=== PATIENT | male | born 1930 | race Caucasian/White ===

== ENCOUNTER 2018-10-21 10:52 | Inpatient (IN) ==
--- NOTE | 2018-10-21 11:16 | ED ---
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 Patient went to Dr. Valenzuela's office apparently for a checkup today. He had his pacemaker interrogated which was showing intermittent capture. EMS reported that his heart rate in route was in the 30s but he had no symptoms from it. Patient has no complaints currently. Has a note from Dr. Valenzuela's office showing that even with maximum voltage she had been intermittent capture in the symptom of here for a lead replacement. Denies any chest pain shortness breath abdominal pain nausea vomiting diarrhea constipation Related Data Home Medications Medication Instructions Recorded Confirmed acetaminophen [Tylenol] 650 mg PO Q6H PRN 10/21/18 10/21/18 atenolol [Tenormin] 50 mg PO QAM 10/21/18 10/21/18 carboxymethylcellulose sodium 0.5 ml EACH EYE BID 10/21/18 10/21/18 [Refresh Plus] clopidogrel [Plavix] 75 mg PO QAM 10/21/18 10/21/18 coenzyme Q10 [CoQ-10] 100 mg PO DAILY 10/21/18 10/21/18 fluticasone [Flonase Allergy 1 spray INTRANASAL DAILY 10/21/18 10/21/18 Relief] lisinopril 10 mg PO DAILY 10/21/18 10/21/18 mirtazapine [Remeron] 30 mg PO HS 10/21/18 10/21/18 multivitamin,wp-ffyf-bclaobms 1 tab PO QPM 10/21/18 10/21/18 [Thera-M] Allergies Allergy/AdvReac Type Severity Reaction Status Date / Time No Known Allergies Allergy Uncoded 10/18/14 14:18 Review of Systems ROS: all other systems reviewed are negative [facility] Medical History Medical History Pacemaker (Acute) Social History Social History Second Hand Smoke Exposure: No Smoking Status: Never smoker How Often Do You Have a Drink Containing Alcohol: Never Recent Travel in [facility] within the Last 8 Weeks: No Recent Out of Country Travel within the Last 8 Weeks: No Immunization History Tetanus Immunization: Unsure Course Initial Documented Vital Signs Pulse Rate 44 L 10/21/18 10:59 Respiratory Rate 16 10/21/18 10:59 Blood Pressure 164/77 H 10/21/18 10:59 Pulse Oximetry 99 10/21/18 10:59 Last Documented Vital Signs Pulse Rate 50 L 10/21/18 14:07 Respiratory Rate 22 10/21/18 14:07 Blood Pressure 153/76 H 10/21/18 14:07 Pulse Oximetry 98 10/21/18 14:07 Medical Decision Making MDM Narrative Medical decision making narrative: Patient 88-year-old male brought in by EMS for apparently nonfunctioning pacemaker lead. Report from EMS was that the patient has had intermittent functioning pacemaker lead even on maximum voltage by interrogation this morning at Dr. Valenzuela's office. Patient is placed Dr. Valenzuela's office and a call was apparently forwarded to Dr. Archer who is unaware the patient. If not been able to reach Dr. Valenzuela. Chest x -ray does not show any broken lead, discussed with Dr. Archer and he will be happy to follow. The patient's labs are reassuring here. Possible pleural effusion on chest x-ray. Patient has no complaints now, he is somewhat odd in behavior and unclear what his baseline mental status is. He is neurologically nonfocal is no indication for emergent workup of his mental status now. Patient did have pacemaker pads placed on him but he has had 100% capture at a rate about 54 here in the emergency department. EKG shows electronically ventricular paced rhythm. He will be placed in the CICU for further cardiology management. Medical Screen Exam Complete: Yes Emergency Medical Condition: Yes Lab Data Result diagrams: 10/21/18 11:16 10/21/18 11:16 Lab Results 10/21/18 10/21/18 Range/Units 11:16 11:16 WBC 6.6 (4.0-11.0) th/mm3 RBC 3.96 L (4.50-5.90) mil/mm3 Hgb 12.2 L (13.0-17.0) gm/dL Hct 35.9 L (39.0-51.0) % MCV 90.5 (80.0-100.0) fL MCH 30.9 (27.0-34.0) pg MCHC 34.1 (32.0-36.0) % RDW 16.2 (11.6-17.2) % Plt Count 272 (150-450) th/mm3 MPV 8.4 (7.0-11.0) fL Neut % (Auto) 56.9 (16.0-70.0) % Lymph % (Auto) 27.5 (9.0-44.0) % [place] % (Auto) 12.7 H (0.0-8.0) % Eos % (Auto) 1.8 (0.0-4.0) % Baso % (Auto) 1.1 (0.0-2.0) % Neut # (Auto) 3.7 (1.8-7.7) th/mm3 Lymph # (Auto) 1.8 (1.0-4.8) th/mm3 [place] # (Auto) 0.8 (0.0-0.9) th/mm3 Eos # (Auto) 0.1 (0.0-0.4) th/mm3 Baso # (Auto) 0.1 (0.0-0.2) th/mm3 WBC Differential . Differential Comment Auto diff final Sodium 134 L (136-145) meq/L Potassium 4.2 (3.5-5.1) meq/L Chloride 101 (98-107) meq/L Carbon Dioxide 22.4 (21.0-32.0) meq/L Anion Gap 11 (5-15) meq/L BUN 19 H (7-18) mg/dL Creatinine 0.98 (0.60-1.30) mg/dL Estimated GFR 72 L (>89) mL/min Random Glucose 104 (74-106) mg/dL Calcium 8.8 (8.5-10.1) mg/dL Total Bilirubin 0.7 (0.2-1.0) mg/dL AST 22 (15-37) U/L ALT 17 (12-78) U/L Alkaline Phosphatase 173 H (45-117) U/L Troponin I Less than 0.02 L (0.02-0.05) ng/mL Total Protein 7.8 (6.4-8.2) g/dL Albumin 3.2 L (3.4-5.0) g/dL Imaging Data Radiologist's impression: Chest X-Ray 10/21/18 11:06 CONCLUSION: 1. Mild diffuse opacity throughout the right lung which may represent a pleural effusion. 2. Mild cardiomegaly 3. No evidence of pulmonary edema or consolidating airspace disease. Discharge Plan Discharge Disposition Patient Disposition: ED Admit(ED Internal Use Only) Discharge Condition Condition: Stable Discharge Order Discharge Orders: ED Use Only Admit Order (Routine); Ordered 10/21/18 Ordered By: Jet Moreno Discharge Details Diagnosis: Pacemaker malfunction Physicians Team ED Provider: Jet Moreno Primary Care Provider: Guy Crump Attending Provider: Debora Khoury Other Providers: Oscar Archer Discharge Interventions Interventions: Vital Signs Last Done: 10/21/18 14:07 Status ED Status: Admitted Observation Patient
[2018-10-21 11:39] LABS: Baso # (Auto) 0.1 th/mm3 (0.0-0.2); Baso % (Auto) 1.1 % (0.0-2.0); Eos # (Auto) 0.1 th/mm3 (0.0-0.4); Eos % (Auto) 1.8 % (0.0-4.0); Hematocrit 35.9 % (39.0-51.0); Hemoglobin 12.2 gm/dL (13.0-17.0); Lymph # (Auto) 1.8 th/mm3 (1.0-4.8); Lymph % (Auto) 27.5 % (9.0-44.0); Mean Corpuscular HGB Conc 34.1 % (32.0-36.0); Mean Corpuscular Hemoglobin 30.9 pg (27.0-34.0); Mean Corpuscular Volume 90.5 fL (80.0-100.0); Mean Platelet Volume 8.4 fL (7.0-11.0); Mono # (Auto) 0.8 th/mm3 (0.0-0.9); Mono % (Auto) 12.7 % (0.0-8.0); Neut # (Auto) 3.7 th/mm3 (1.8-7.7); Neut % (Auto) 56.9 % (16.0-70.0); Platelet Count 272 th/mm3 (150-450); Red Blood Count 3.96 mil/mm3 (4.50-5.90); Red Cell Distribution Width 16.2 % (11.6-17.2); White Blood Count 6.6 th/mm3 (4.0-11.0)
--- NOTE | 2018-10-21 11:45 | XR ---
EXAM DATE: 10/21/2018 11:41 AM EST AGE/SEX: 88 years / Male INDICATIONS: Chest pain. CLINICAL DATA: This is the patient's initial encounter. Patient reports that signs and symptoms have been present for 1 day and indicates a pain score of 3/10. MEDICAL/SURGICAL HISTORY: None. Pacemaker. COMPARISON: [facility] [place], CHEST SINGLE AP, 05/04/2012. . FINDINGS: Lungs are hypoaerated. Mild opacity seen throughout the right lung. Left lung is clear. Heart is mildly enlarged. Pacemaker is noted in place. CONCLUSION: 1. Mild diffuse opacity throughout the right lung which may represent a pleural effusion. 2. Mild cardiomegaly 3. No evidence of pulmonary edema or consolidating airspace disease. Electronically signed by: Janes Austin MD Board Certified Radiologist 10/21/2018 11:44 AM EST
[2018-10-21 11:57] LABS: Albumin 3.2 g/dL (3.4-5.0); Anion Gap 11 meq/L (5-15); Aspartate Aminotransferase 22 U/L (15-37); Blood Urea Nitrogen 19 mg/dL (7-18); Calcium 8.8 mg/dL (8.5-10.1); Carbon Dioxide 22.4 meq/L (21.0-32.0); Chloride 101 meq/L (98-107); Glomerular Filtration Rate 72 mL/min (>89); Glucose,Random 104 mg/dL (74-106); Potassium 4.2 meq/L (3.5-5.1); Sodium 134 meq/L (136-145)
[2018-10-21 11:58] LABS: Alanine Aminotransferase 17 U/L (12-78)
[2018-10-21 12:02] LABS: Alkaline Phosphatase 173 U/L (45-117); Total Protein 7.8 g/dL (6.4-8.2)
[2018-10-21] MEDS ORDERED: Mupirocin 2% Nasal Oint Topical Syringe EACH NARE SCH (13:45)
[2018-10-21] MEDS ORDERED: Chlorhexidine Gluconate 2% 1 Pack (2 Cloths) TOPICAL SCH (13:45)
[2018-10-21 15:30] LABS: INR 1.1 Ratio
--- NOTE | 2018-10-21 16:22 | P.HP ---
History of Present Illness Service: [facility] hospitalist service Primary Care Physician: Guy Crump Chief Complaint: Malfunctioning pacemaker History of Present Illness: Patient is a very pleasant 88-year-old male who resident of nearby [facility], with history of hypertension, Baseline some Dementia baseline gets around mainly with a wheelchair and not ambulating, Patient has history of pacemaker placed 7 years ago. Was in his digital pre press operator's office today, interrogating pacemaker showed non-captured beats. En route here heart rate reportedly was in the 30s. Patient sent here and admitted for pacemaker change. Patient denies any dizziness headache nausea vomiting or chest pain or shortness of breath. Patient baseline is incontinent of urine. And at the [facility] [place] [facility] gets his diaper change every 4-6 hours. wheel chair bound Patient is currently awake alert oriented to person place and year speech clear Currently on monitor his heart rate is in paced rhythm with rate of 55-58/min Review of records is on mechanical soft thin liquid diet. Never smoked per patient Very hard of hearing . Inpatient Certification: I certify that the inpatient services were ordered in accordance with Medicare regulations governing the order. This includes certification that hospital inpatient services are reasonable and necessary and in the case of services not specified as inpatient-only under 42 CFR 419.22(n), that they are appropriately provided as inpatient services in accordance to with the 2-midnight benchmark under 43 CFR 412.3(e) Estimated Total Length of Stay (Days): 2 Plans for Post Hospital Care: Not yet determined Review of Systems Patient is awake alert denies any headache denies any fever nausea or vomiting Denies any chest pain or shortness of breath and Denies any abdominal discomfort Stated baseline per staff nurse is incontinent of urine no leg swelling Gets around with a wheelchair PMFSH - History History Provided By: Retail Sales Consultant / EMT - Medical History Medical History: Medical History (Last Updated 10/21/18 @ 11:03 by Pia Feng RN) Pacemaker - Tobacco History Second Hand Smoke Exposure: No Smoking Status: Never smoker - Alcohol History How Often Do You Have a Drink Containing Alcohol: Never - Travel History Recent Travel in the [place] Within the Last 8 Weeks: No Recent Travel Out of the Country Within the Last 8 Weeks: No - Immunization History Tetanus Immunization: Unsure Medications and Allergies Active Medications: Active Medications Chlorhexidine Gluconate (Chlorhexidine 2% Cloth) 3 pack TOPICAL CORING MACHINE OPERATOR RYAN Stop: 10/24/18 13:31 Cefazolin Sodium/Dextrose (Ancef 2 Gm Premix Inj) 2 gm in 50 mls @ 100 mls/hr IV.SIG CORING MACHINE OPERATOR [facility] Stop: 10/24/18 13:32 Vancomycin HCl 1,000 mg/ (Sodium Chloride) 250 mls @ 250 mls/hr IV.SIG CORING MACHINE OPERATOR [facility] Stop: 10/24/18 13:32 Sodium Chloride (Ns Inj) 1,000 mls @ 100 mls/hr IV.CONT .Q10H [facility] Mupirocin (Bactroban 2% Nasal Oint) 1 applicatio EACH NARE CORING MACHINE OPERATOR [facility] Stop: 10/24/18 13:31 Povidone Iodine (Betadine 5% Antisepsis Kit) 1 applicatio EACH NARE CORING MACHINE OPERATOR [facility] Stop: 10/24/18 13:31 Sodium Chloride (Ns Flush) 2 ml IV.FLUSH UNSCH PRN PRN Reason: FLUSH AFTER USING IV ACCESS Allergies Allergy/AdvReac Type Severity Reaction Status Date / Time No Known Allergies Allergy Uncoded 10/18/14 14:18 Home Medications Medication Instructions Recorded Confirmed Type acetaminophen [Tylenol] 650 mg PO Q6H PRN 10/21/18 10/21/18 History atenolol [Tenormin] 50 mg PO QAM 10/21/18 10/21/18 History carboxymethylcellulose sodium 0.5 ml EACH EYE BID 10/21/18 10/21/18 History [Refresh Plus] clopidogrel [Plavix] 75 mg PO QAM 10/21/18 10/21/18 History coenzyme Q10 [CoQ-10] 100 mg PO DAILY 10/21/18 10/21/18 History fluticasone [Flonase Allergy 1 spray INTRANASAL DAILY 10/21/18 10/21/18 History Relief] lisinopril 10 mg PO DAILY 10/21/18 10/21/18 History mirtazapine [Remeron] 30 mg PO HS 10/21/18 10/21/18 History multivitamin,ua-zird-nbeutaad 1 tab PO QPM 10/21/18 10/21/18 History [Thera-M] Exam Vital signs: Vital Signs 10/21/18 10:59 10/21/18 11:06 10/21/18 13:08 Pulse Rate 44 L 54 L 56 L Respiratory Rate 16 Blood Pressure 164/77 H 136/65 Pulse Oximetry 99 100 95 10/21/18 14:07 10/21/18 15:44 Pulse Rate 50 L 53 L Respiratory Rate 22 Blood Pressure 153/76 H 146/66 H Pulse Oximetry 98 99 Intake & Output 10/20/18 10/21/18 10/21/18 18:59 06:59 18:59 Weight 84.302 kg Narrative: Blood pressure 180/70 heart rate 60 Anicteric sclera Neck supple Lungs no rales no wheezes Regular rhythm soft 2/6 systolic murmur left sternal border Abdomen soft nontender Extremities no edema. Some venous stasis bilateral no calf tenderness Neurologic exam awake alert oriented to person and place and year and knows the president Cranial nerves grossly intact some mild facial asymmetry tongue midline with good gag reflex Moves all extremities spontaneously able to raise both legs gait testing deferred Results - Labs CBC & Chem 7: 10/21/18 11:16 10/21/18 11:16 Labs: Laboratory Results - last 24 hr 10/21/18 10/21/18 10/21/18 11:16 11:16 14:09 WBC 6.6 RBC 3.96 L Hgb 12.2 L Hct 35.9 L MCV 90.5 MCH 30.9 MCHC 34.1 RDW 16.2 Plt Count 272 MPV 8.4 Neut % (Auto) 56.9 Lymph % (Auto) 27.5 [place] % (Auto) 12.7 H Eos % (Auto) 1.8 Baso % (Auto) 1.1 Neut # (Auto) 3.7 Lymph # (Auto) 1.8 [place] # (Auto) 0.8 Eos # (Auto) 0.1 Baso # (Auto) 0.1 WBC Differential . Differential Comment Auto diff final PT 11.0 INR 1.1 Sodium 134 L Potassium 4.2 Chloride 101 Carbon Dioxide 22.4 Anion Gap 11 BUN 19 H Creatinine 0.98 Estimated GFR 72 L Random Glucose 104 Calcium 8.8 Total Bilirubin 0.7 AST 22 ALT 17 Alkaline Phosphatase 173 H Troponin I Less than 0.02 L Total Protein 7.8 Albumin 3.2 L - Imaging Impressions Chest X-Ray 10/21/18 11:06 CONCLUSION: 1. Mild diffuse opacity throughout the right lung which may represent a pleural effusion. 2. Mild cardiomegaly 3. No evidence of pulmonary edema or consolidating airspace disease. Caprini VTE Risk Assessment Caprini VTE Risk Assessment: Moderate/High Risk (score >= 2) Caprini Risk Assessment Model: Point Value = 1 Point Value = 2 Point Value = 3 Point Value = 5 Age 41-60 Minor surgery BMI > 25 kg/m2 Swollen legs Varicose veins or History of unexplained or recurrent spontaneous Oral contraceptives or hormone replacement Sepsis (< 1 month) Serious lung disease, including pneumonia (< 1 month) Abnormal pulmonary function Acute myocardial infarction Congestive heart failure (< 1 month) History of inflammatory bowel disease Medical patient at bed rest Age 61-74 Arthroscopic surgery Major open surgery (> 45 min) Laparoscopic surgery (> 45 min) Malignancy Confined to bed (> 72 hours) Immobilizing plaster cast Central venous access Age >= 75 History of VTE Family history of VTE Factor V Leiden Prothrombin [id number] Lupus anticoagulant Anticardiolipin antibodies Elevated serum homocysteine Heparin-induced thrombocytopenia Other congenital or acquired thrombophilia Stroke (< 1 month) Elective arthroplasty Hip, pelvis, or leg fracture Acute spinal cord injury (< 1 month) Prophylaxis Regimen: Total Risk Factor Score Risk Level Prophylaxis Regimen 0-1 Low Early ambulation 2 Moderate Order ONE of the following: *Sequential Compression Device (SCD) *Heparin 5000 units SQ BID 3-4 Higher Order ONE of the following medications: *Heparin 5000 units SQ TID *Enoxaparin/Lovenox 40 mg SQ daily (WT < 150 kg, CrCl > 30 mL/min) *Enoxaparin/Lovenox 30 mg SQ daily (WT < 150 kg, CrCl > 10-29 mL/min) *Enoxaparin/Lovenox 30 mg SQ BID (WT < 150 kg, CrCl > 30 mL/min) AND/OR *Sequential Compression Device (SCD) 5 or more Highest Order ONE of the following medications: *Heparin 5000 units SQ TID (Preferred with Epidurals) *Enoxaparin/Lovenox 40 mg SQ daily (WT < 150 kg, CrCl > 30 mL/min) *Enoxaparin/Lovenox 30 mg SQ daily (WT < 150 kg, CrCl > 10-29 mL/min) *Enoxaparin/Lovenox 30 mg SQ BID (WT < 150 kg, CrCl > 30 mL/min) AND *Sequential Compression Device (SCD) Assessment and Plan - Plan 88-year-old male with on review of NATHAN notes- with history of HTN, TIA, CVA with no residual deficits, history of dementia with occasional behavioral disturbance medications list on form on atenolol lisinopril Plavix, Remeron, multivitamins, Malfunctioning pacemaker History of hypertension Cardiology consulted for pacemaker change in a.m. Continue on lisinopril 10 mg daily we will hold Atenolol for now Continue Plavix Bilateral teds SCDs for DVT prophylaxis Diet continue mechanical soft with thin liquids diet PT eval consult continue meds except Atenolol
[2018-10-21] MEDS ORDERED: Acetaminophen 325 MG Tablet PO PRN (16:29)
[2018-10-21] MEDS: Multivitamin/Minerals Therapeutic Tablet PO SCH (18:19)
--- NOTE | 2018-10-21 20:47 | MB ---
cc: Oscar Archer DO DATE: 10/21/2018 REASON FOR CONSULTATION: Malfunctioning pacemaker. HISTORY OF PRESENT ILLNESS: Galen Leroy is a pleasant 88-year-old male who sees my partner, Dr. Valenzuela, in the office and presented at the recommendation of Dr. Valenzuela due to a pacemaker malfunction. He was in the office today to get his pacemaker interrogated, and it showed difficulty capturing both the right atrial and right ventricular lead. The output was increased to the max and had difficulty with capturing still. At that time, he was recommended to be sent over to the hospital. En route via ambulance, his heart rate was in the 30s. Once here, his pacemaker seems to be capturing better with mostly paced beats, but occasional wide complex beats, which may be PVCs versus escape rhythm. He denies any chest pain, shortness of breath, syncopal or near-syncopal or syncopal or presyncopal episodes at this time. PAST MEDICAL HISTORY: 1. Atrial fibrillation. 2. Cavazos's palsy. 3. Hypertension. 4. History of myocardial infarction. 5. Mild pulmonary hypertension. PAST SURGICAL HISTORY: 1. Atrial flutter ablation. 2. Biotronik pacemaker placement (05/04/2012). ALLERGIES: NO KNOWN DRUG ALLERGIES. MEDICATIONS: 1. Remeron 30 mg every night. 2. Lisinopril 10 mg daily. 3. Fluconazole 1 spray daily. 4. Plavix 75 mg every morning. 5. Coenzyme Q10 100 mg daily. 6. Atenolol 50 mg every morning. FAMILY HISTORY: Denies sudden cardiac within the family. SOCIAL HISTORY: Denies tobacco, alcohol or drug abuse. REVIEW OF SYSTEMS: Fourteen systems were reviewed including osteopathic. Pertinent positives and negatives above, otherwise negative. PHYSICAL EXAMINATION: VITAL SIGNS: Temperature 97.2, heart rate 56, blood pressure 136/65, respirations 20, pulse oximetry 95% on room air. GENERAL: The patient appears well, in no acute distress, alert, awake and oriented x 3. HEENT: Extraocular muscles intact. Mucous membranes moist. NECK: Supple. No JVD at 45 degrees. No carotid bruits heard bilaterally. Carotid upstroke is brisk in nature. HEART: Regular rhythm, but bradycardic. There is a 2/6 crescendo decrescendo murmur to the right sternal border. LUNGS: Clear to auscultation bilaterally. No wheezes, rales or rhonchi. ABDOMEN: Soft, nontender, nondistended. No organomegaly noted. EXTREMITIES: Show no clubbing, cyanosis or edema. There is some venous stasis bilaterally. NEUROLOGIC: No focal deficits. SKIN: Warm, dry and intact. OSTEOPATHIC: No kyphoscoliosis, lordosis or paraspinal tender points. LABORATORY DATA: Hemoglobin 12.2, hematocrit 35.9, platelets 272. Potassium 4.2, BUN 19, creatinine 0.98. Troponin less than 0.02. Electrocardiogram (10/21/2018 at 1106) ventricular paced. IMPRESSION: 1. Malfunctioning pacemaker with difficult capture. 2. History of hypertension. 3. History of transient ischemic attack/cerebrovascular accident. RECOMMENDATIONS: 1. Mr. Leroy was in the office and had difficulty of capture of his right atrial and right ventricular lead, and he will most likely need a replacement of at least his right ventricular lead. 2. I discussed this with Dr. Rossi from electrophysiology, and he will see the patient and consider this for tomorrow. 3. Patient is currently stable and does not need a temporary pacemaker placed. 4. We will continue him on his current cardiovascular medication. 5. He has a history of atrial fibrillation, but it appears that he was previously on Coumadin and this was stopped due to difficulty with levels as well as hematuria, and it was stopped due to this. 7. Further recommendations per EP cardiology. Thank you for allowing me to see Galen Leroy. If there are any questions, please do not hesitate to call. DO ZAIN Smiley/duglas , 06:02 PM , 06:12 PM
[2018-10-21] MEDS: Carboxymethylcellulose 0.5% Opth Drops 15 ML Bottle EACH EYE SCH (21:33)
[2018-10-21] MEDS: Mirtazapine 15 MG Tablet PO SCH (21:33)
[2018-10-22] MEDS: Sod Chloride 0.9% Inj 1,000 ML IV.CONT SCH ×2 (06:30→15:47)
[2018-10-22] MEDS: Carboxymethylcellulose 0.5% Opth Drops 15 ML Bottle EACH EYE SCH ×3 (08:56→20:45)
[2018-10-22] MEDS: Lisinopril 10 MG Tablet PO SCH (08:56)
[2018-10-22] MEDS ORDERED: Non-Formulary Drug (Coenzyme Q10 [Coq-10] 100 MG) PO SCH (09:00)
[2018-10-22] MEDS ORDERED: ceFAZolin 1 GM Premix Inj 2 GM/100 ML PIGGYBACK IV.SIG ONE (09:50)
[2018-10-22] MEDS ORDERED: Sodium Chlor 0.9% Inj 250 ML ONE (09:50)
[2018-10-22] MEDS ORDERED: Lidocaine 2% Inj 50 ML Vial ONE (09:51)
[2018-10-22] MEDS ORDERED: ceFAZolin 2 GM Premix Inj 2 GM/50 ML PIGGYBACK IV.SIG SCH (10:00)
[2018-10-22] MEDS ORDERED: Vancomycin Inj 1,000 MG in Sodium Chlor 0.9% Inj 250 ML IV.SIG SCH (10:00)
--- NOTE | 2018-10-22 10:22 | MB ---
cc: Jesus Anthony MD DATE: 10/22/2018 REASON FOR CONSULTATION: Placement of a new ventricular lead and pacemaker generator. HISTORY OF PRESENT ILLNESS: The patient is an 88-year-old white male, followed in our office by Dr. Patrizia Valenzuela, who has a history of paroxysmal atrial fibrillation, pacemaker implant, hypertension, who was sent to the hospital after his pacemaker was found to be malfunctioning. The ventricular lead was failing to capture. This resulted in heart rates as low as 30s. The patient denies any dizziness, syncope, or near syncope. He also denies chest pain, shortness of breath, pedal edema, paroxysmal nocturnal dyspnea, palpitations. For the most part, he is sedentary. PAST MEDICAL HISTORY: 1. Paroxysmal atrial fibrillation. The patient apparently has had trouble with gross hematuria in the past, necessitating discontinuation of Coumadin. 2. History of Biotronik pacemaker [place] [address] Kemar Alexander. 3. Hypertension. 4. Atrial flutter ablation 2011. CARDIAC MEDICATIONS AT HOME: 1. Lisinopril 10 mg daily. 2. Clopidogrel 75 mg q.a.m. 3. Tenormin 50 mg daily. ALLERGIES: NO KNOWN DRUG ALLERGIES. FAMILY HISTORY: Noncontributory. SOCIAL HISTORY: The patient denies any history of alcohol or tobacco abuse. REVIEW OF SYSTEMS: As in the history of present illness, otherwise negative or noncontributory. He also denies headache, abdominal pain, melena, dyspepsia, bright red blood per rectum. PHYSICAL EXAMINATION: VITAL SIGNS: His blood pressure 173/97 with a pulse of 64, respirations 16. GENERAL: He is a well-developed, thin, white male in no acute distress. NECK: Jugular venous pressure is normal. Carotid pulses are 2+ bilaterally and without bruits. CHEST: Reveals clear lungs [place]. CARDIAC: He has a regular rhythm and rate without S3, S4, or murmur. ABDOMEN: He has a soft nontender abdomen. Bowel sounds are present. There is no definite hepatosplenomegaly. EXTREMITIES: Reveals no clubbing, cyanosis, or edema. DIAGNOSTIC DATA: Chest x-ray shows no acute disease. EKG shows ventricular paced rhythm. Laboratory data includes WBC 6.6, hemoglobin 12.2, platelets 272. Potassium 4.2, BUN 19, creatinine 0.98. IMPRESSION: Malfunctioning pacemaker with very high and changed stimulation threshold on the ventricular lead in this 88-year-old white male with history of pacemaker implant in 2012, paroxysmal atrial fibrillation, hypertension. At this point, I would agree with the need to place a new ventricular lead. The nature of this procedure and potential risks have been outlined to the patient, who agrees to proceed. RECOMMENDATIONS: Placement of a new ventricular pacemaker lead and pacemaker generator replacement today. MD PAUL Alva/rs/ll , 08:17 AM , 08:24 AM MTDWanda
[2018-10-22] MEDS ORDERED: fentaNYL Citrate Inj 100 MCG/2 ML Ampul ONE (12:34)
--- NOTE | 2018-10-22 13:18 | XR ---
EXAM DATE: 10/22/2018 1:12 PM EST AGE/SEX: 88 years / Male INDICATIONS: Post-op pacemaker. CLINICAL DATA: This is the patient's subsequent encounter. Patient reports that signs and symptoms h ave been present for 1 day and indicates a pain score of Nonresponsive. MEDICAL/SURGICAL HISTORY: None. Pacemaker. COMPARISON: [facility] [place], CHEST 1V SINGLE AP, 10/21/2018. . FINDINGS: A single AP view of the chest demonstrates the lungs to be symmetrically aerated without evidence of mass. There is decreased abnormal opacity in the right lung with mild residual at the right lung base . There is no distinct effusion. The cardiomediastinal contours are unremarkable. Degenerative change s are noted in both glenohumeral joints right greater than left. Atherosclerotic changes are present in the aorta. There is no pneumothorax. There is a left subclavian AV sequential transvenous pacer in place. An additional pacer lead has been placed. CONCLUSION: 1. Interval placement of additional pacer lead with no pneumothorax. 2. Decreased opacity in the lungs with mild residual at the right lung base. Electronically signed by: Harsha Skelton MD Board Certified Radiologist 10/22/2018 1:16 PM EST
--- NOTE | 2018-10-22 13:45 | MP ---
cc: Jesus Anthony MD, Beth A MD DATE OF OPERATION: 10/22/2018 PROCEDURES: 1. Very difficult placement of a new right ventricular pacemaker lead. 2. Pacemaker generator replacement. OPERATIVE NOTE: The patient was brought to the operating suite in a fasting state after having signed informed consent. The patient's ventricular lead was verified to be malfunctioning. It also appears to be in a poor position fluoroscopically. The left upper chest was prepped and draped as per policy and anesthetized with 1% lidocaine. A transverse incision was made over the preexisting generator and using blunt dissection. The generator was freed from the subcutaneous pocket. After administration of 15 mL of contrast through a left arm peripheral IV, central venous access was obtained via the left subclavian vein. At this point, we were unable to advance the guidewire past a tortuous portion of the subclavian vein. We tried to pass the wire out of a micropuncture kit without success. Advancing a glidewire was also unsuccessful. At this point, we tried to advance a ChoICE PT guidewire. With some difficulty, we were able to traverse 2 tortuous portions in the subclavian vein and the wire positioned distally in the inferior vena cava. We attempted to place a Trailblazer catheter over this wire without success. It was exchanged for a smaller 0.018 Trailblazer. We were able to advance this catheter over the wire distally to the inferior vena cava region. The ChoICE PT wire was removed and then a V0.018 wire was introduced through the Trailblazer and then the Trailblazer removed. Over the 0.018 wire we were able to advance a 7-Mexican peel-away sheath. Through this sheath, a ventricular active fixation lead was introduced and its tip positioned in the right ventricular apex where good current of injury, stimulation threshold (0.5 volts) and sensitivity (13.3 millivolts) were demonstrated. The lead was secured into place using 2-0 silk ties down to the pectoralis fascia. The lead was then connected to the new pacemaker generator, which is a Biotronik Edora device. The atrial lead from the old generator was disconnected and then reconnected to the new generator. The old ventricular lead was capped. The leads and generator were placed back into the subcutaneous pocket which was closed using 3-0 Vicryl interrupted stitches and 2 layers to close the subcutaneous tissue and then 4-0 Monocryl running stitch to close the subcuticular tissue. Overlapping Steri-Strips and a pressure dressing were applied. There were no apparent immediate complications. A portable chest x-ray is pending at the time of this dictation. CONCLUSIONS: 1. Status post successful, though very difficult, placement of a new right ventricular pacemaker lead. 2. Status post pacemaker generator replacement. MD PAUL Alva/brett , 12:30 PM , 12:39 PM MTDWanda
--- NOTE | 2018-10-22 15:01 | P.PNIM ---
Subjective Interval history: Status post surgery Mildly sleepy, awake, alert, denies any chest pain or palpitations. Denies any pain. Not short of breath. Physical Exam Vital signs: Last Vital Signs Temp 98.2 F 10/22/18 08:00 Pulse 54 L 10/22/18 10:00 Resp 16 10/22/18 08:00 BP 140/79 10/22/18 08:00 Pulse Ox 97 10/22/18 14:52 Intake & Output 10/20/18 10/21/18 10/22/18 10/23/18 06:59 06:59 06:59 06:59 Intake Total 240 / 240 Output Total 475 / 475 Balance -235 / -235 Weight 82.5 kg Narrative: Not in distress Anicteric sclera Neck supple Lungs no rales no wheezes Regular rhythm soft 2/6 systolic murmur left sternal border, left shoulder sling in place Abdomen soft nontender Extremities no edema. Some venous stasis bilateral no calf tenderness Neurologic exam awake alert oriented to person and place and year and knows the president Results Labs CBC & Chem 7: 10/21/18 11:16 10/21/18 11:16 Imaging Imaging: Impressions Chest X-Ray 10/22/18 00:00 CONCLUSION: 1. Interval placement of additional pacer lead with no pneumothorax. 2. Decreased opacity in the lungs with mild residual at the right lung base. 10/22/2018: Status post placement of a new right ventricular pacemaker lead, Status post pacemaker generator replacement. 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 D/C after cleared by cardiology History of hypertension- Continue on lisinopril 10 mg daily, restart Atenolol Bilateral teds SCDs for DVT prophylaxis Diet continue mechanical soft with thin liquids diet D/C back to [facility] after cleared by Cardiology tomorrow
[2018-10-22] MEDS ORDERED: Iohexol 350 MG/ML 50 ML Vial (for EPS) IVCONTRAST ONE (16:12)
--- NOTE | 2018-10-22 16:22 | ECG ---
Date Performed: 10/21/2018 Time Performed: 11:06:26 PTAGE: 88 years EKG: ELECTRONIC VENTRICULAR PACEMAKER, OCCASIONAL PVC ABNORMAL RHYTHM ECG NO PREVIOUS TRACING DOCTOR: Jesus Anthony Interpretating Date/Time 10/22/2018 16:21:20
[2018-10-22] MEDS: Atenolol 50 MG Tablet PO SCH (16:47)
[2018-10-22] MEDS: Multivitamin/Minerals Therapeutic Tablet PO SCH (17:07)
[2018-10-22] MEDS: Mirtazapine 15 MG Tablet PO SCH (20:45)
[2018-10-22] MEDS: Vancomycin Inj 1,250 MG in Sodium Chlor 0.9% Inj 250 ML IV.SIG SCH (22:32)
[2018-10-23] MEDS: Sod Chloride 0.9% Inj 1,000 ML IV.CONT SCH ×2 (01:08→15:01)
--- NOTE | 2018-10-23 08:14 | P.PNIM ---
Subjective Interval history: Follow-up for pacemaker placement No overnight events, no nausea or vomiting. No pain left shoulder or left chest , just mild discomfort. Denies any chest pain, shortness of breath, palpitation , dizziness or lightheadedness Physical Exam Vital signs: Last Vital Signs Temp 98.2 F 10/23/18 04:00 Pulse 61 10/23/18 07:00 Resp 18 10/23/18 04:00 BP 159/81 H 10/23/18 04:00 Pulse Ox 95 10/23/18 04:00 Intake & Output 10/21/18 10/22/18 10/23/18 10/24/18 06:59 06:59 06:59 06:59 Intake Total 240 / 240 1222.5 / 1222.5 Output Total 475 / 475 775 / 775 Balance -235 / -235 447.5 / 447.5 Weight 82.5 kg 82.3 kg Narrative: Not in distress Anicteric sclera Neck supple Lungs no rales no wheezes Regular rhythm soft 2/6 systolic murmur left sternal border, left shoulder sling in place Abdomen soft nontender Extremities no edema. Some venous stasis bilateral no calf tenderness Neurologic exam awake alert oriented to person and place and year and knows the president Results Labs CBC & Chem 7: 10/21/18 11:16 10/21/18 11:16 Imaging Imaging: Impressions Chest X-Ray 10/22/18 00:00 CONCLUSION: 1. Interval placement of additional pacer lead with no pneumothorax. 2. Decreased opacity in the lungs with mild residual at the right lung base. 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 D/C after cleared by cardiology today History of hypertension- Continue on lisinopril 10 mg daily, cont Atenolol Bilateral teds SCDs for DVT prophylaxis Diet continue mechanical soft with thin liquids diet D/C back to [facility] after cleared by Cardiology Discharge patient to [facility] Condition on discharge: Improved Mechanical soft heart health Diet as tolerated Nonweightbearing left upper extremity Rx written:none Follow-up with primary care physician and cardiology in 1 week Total discharge time: 35 minutes
[2018-10-23] MEDS: Atenolol 50 MG Tablet PO SCH (08:36)
[2018-10-23] MEDS: Lisinopril 10 MG Tablet PO SCH (08:36)
[2018-10-23] MEDS: Carboxymethylcellulose 0.5% Opth Drops 15 ML Bottle EACH EYE SCH (08:36)
[2018-10-23] MEDS: Vancomycin Inj 1,250 MG in Sodium Chlor 0.9% Inj 250 ML IV.SIG SCH (09:08)
[2018-10-23 09:22] VITALS: RESP 16
--- NOTE | 2018-10-23 11:45 | P.PNCA ---
Subjective Interval history: Denies pain, dyspnea, dizziness. Medications and Allergies Active Medications: Active Medications Acetaminophen (Tylenol) 650 mg PO Q6H PRN PRN Reason: Elevated Temp Artificial Tears (Refresh Tears 0.5% Opth Drops) 0.5 drop EACH EYE BID [facility] Last Admin: 10/23/18 08:36 Dose: Not Given Atenolol (Tenormin) 50 mg PO DAILY [facility] Last Admin: 10/23/18 08:36 Dose: 50 mg Chlorhexidine Gluconate (Chlorhexidine 2% Cloth) 3 pack TOPICAL SPONGE PACKER [facility] Stop: 10/24/18 13:31 Clopidogrel Bisulfate (Plavix) 75 mg PO DAILY [facility] Last Admin: 10/23/18 08:36 Dose: 75 mg Fluticasone Propionate (Flonase Nasal [place]) 1 spray EACH NARE DAILY [facility] Last Admin: 10/23/18 09:08 Dose: 1 spray Cefazolin Sodium/Dextrose (Ancef 2 Gm Premix Inj) 2 gm in 50 mls @ 100 mls/hr IV.SIG SPONGE PACKER [facility] Stop: 10/24/18 13:32 Vancomycin HCl 1,000 mg/ (Sodium Chloride) 250 mls @ 250 mls/hr IV.SIG SPONGE PACKER [facility] Stop: 10/24/18 13:32 Last Infusion: 10/22/18 11:35 Dose: 0 mls/hr Sodium Chloride (Ns Inj) 1,000 mls @ 100 mls/hr IV.CONT .Q10H [facility] Last Admin: 10/23/18 01:08 Dose: Not Given Lisinopril (Prinivil) 10 mg PO DAILY [facility] Last Admin: 10/23/18 08:36 Dose: 10 mg Mirtazapine (Remeron) 30 mg PO HS [facility] Last Admin: 10/22/18 20:45 Dose: 30 mg Multivitamins/Minerals (Theragran-M) 1 tab PO QPM [facility] Last Admin: 10/22/18 17:07 Dose: 1 tab Mupirocin (Bactroban 2% Nasal Oint) 1 applicatio EACH NARE SPONGE PACKER [facility] Stop: 10/24/18 13:31 Povidone Iodine (Betadine 5% Antisepsis Kit) 1 applicatio EACH NARE SPONGE PACKER [facility] Stop: 10/24/18 13:31 Sodium Chloride (Ns Flush) 2 ml IV.FLUSH UNSCH PRN PRN Reason: FLUSH AFTER USING IV ACCESS Last Admin: 10/22/18 08:57 Dose: 2 ml Allergies Allergy/AdvReac Type Severity Reaction Status Date / Time No Known Allergies Allergy Uncoded 10/18/14 14:18 Home Medications Medication Instructions Recorded Confirmed Type acetaminophen [Tylenol] 650 mg PO Q6H PRN 10/21/18 10/21/18 History atenolol [Tenormin] 50 mg PO QAM 10/21/18 10/21/18 History carboxymethylcellulose sodium 0.5 ml EACH EYE BID 10/21/18 10/21/18 History [Refresh Plus] clopidogrel [Plavix] 75 mg PO QAM 10/21/18 10/21/18 History coenzyme Q10 [CoQ-10] 100 mg PO DAILY 10/21/18 10/21/18 History fluticasone [Flonase Allergy 1 spray INTRANASAL DAILY 10/21/18 10/21/18 History Relief] lisinopril 10 mg PO DAILY 10/21/18 10/21/18 History mirtazapine [Remeron] 30 mg PO HS 10/21/18 10/21/18 History multivitamin,[id number] 1 tab PO QPM 10/21/18 10/21/18 History [Thera-M] Physical Exam Vital signs: Vital Signs 10/22/18 12:00 10/22/18 12:45 10/22/18 13:00 Temperature Pulse Rate 60 61 61 Respiratory Rate 16 16 Blood Pressure 140/85 126/75 Pulse Oximetry 100 10/22/18 14:00 10/22/18 14:52 10/22/18 15:00 Temperature Pulse Rate 60 65 Respiratory Rate 16 16 Blood Pressure 133/70 129/64 Pulse Oximetry 97 10/22/18 16:00 10/22/18 17:00 10/22/18 18:00 Temperature Pulse Rate 58 L 60 88 Respiratory Rate 16 Blood Pressure 141/59 H Pulse Oximetry 10/22/18 19:00 10/22/18 20:00 10/22/18 20:59 Temperature 98.4 F Pulse Rate 85 64 Respiratory Rate 18 Blood Pressure 125/65 Pulse Oximetry 96 97 10/22/18 21:00 10/22/18 22:00 10/22/18 23:00 Temperature Pulse Rate 78 70 88 Respiratory Rate Blood Pressure Pulse Oximetry 10/23/18 00:00 10/23/18 01:00 10/23/18 02:00 Temperature 98.5 F Pulse Rate 90 87 89 Respiratory Rate 18 Blood Pressure 129/84 Pulse Oximetry 95 10/23/18 03:00 10/23/18 04:00 10/23/18 05:00 Temperature 98.2 F Pulse Rate 87 88 90 Respiratory Rate 18 Blood Pressure 159/81 H Pulse Oximetry 95 10/23/18 06:00 10/23/18 07:00 10/23/18 08:00 Temperature 98.2 F Pulse Rate 98 H 74 76 Respiratory Rate 16 Blood Pressure 146/88 H Pulse Oximetry 99 10/23/18 09:00 10/23/18 10:00 10/23/18 11:00 Temperature Pulse Rate 58 L 72 78 Respiratory Rate Blood Pressure Pulse Oximetry Intake & Output 10/22/18 10/23/18 10/23/18 18:59 06:59 18:59 Intake Total 720 / 720 502.5 / 502.5 262.5 / 262.5 Output Total 675 / 675 100 / 100 Balance 45 / 45 402.5 / 402.5 262.5 / 262.5 Weight 82.3 kg Intake: IV 262.5 / 262.5 262.5 / 262.5 Vancomycin Inj 1,250 MG In NS 262.5 / 262.5 262.5 / 262.5 Inj 250 ML @ 250 mls/hr IV.SIG Q12H RYAN Rx#:[id number] Oral 720 / 720 240 / 240 Output: Urine 675 / 675 100 / 100 Other: # Incontinent Voids 2 # Urine Diapers 2 Date of Last Bowel Movement 10/21/18 10/23/18 10/23/18 # Incontinent Bowel Movements 1 - Constitutional no acute distress - Routine Neck Exam Absent: JVD - Routine Respiratory Exam Present: CTA bilaterally - Routine Cardiovascular Exam Present: RRR, S1, S2. Absent: murmur, gallop Comments: Pacer site clean, dry, intact, no hematoma or tenderness. - Routine Abdominal Exam Present: soft, normoactive bowel sounds. Absent: tenderness, organomegaly Results 10/21/18 11:16 10/21/18 11:16 Cardiac Enzymes 10/21/18 Range/Units 11:16 AST 22 (15-37) U/L Troponin I Less than 0.02 L (0.02-0.05) ng/mL Coagulation 10/21/18 Range/Units 14:09 PT 11.0 (9.8-11.6) sec Comprehensive Metabolic Panel 10/21/18 Range/Units 11:16 Sodium 134 L (136-145) meq/L Potassium 4.2 (3.5-5.1) meq/L Chloride 101 (98-107) meq/L Carbon Dioxide 22.4 (21.0-32.0) meq/L BUN 19 H (7-18) mg/dL Creatinine 0.98 (0.60-1.30) mg/dL Calcium 8.8 (8.5-10.1) mg/dL AST 22 (15-37) U/L ALT 17 (12-78) U/L Alkaline Phosphatase 173 H (45-117) U/L Total Protein 7.8 (6.4-8.2) g/dL Albumin 3.2 L (3.4-5.0) g/dL Intake and Output 10/22/18 10/23/18 10/23/18 22:59 06:59 14:59 Intake Total 720 / 720 502.5 / 502.5 262.5 / 262.5 Output Total 675 / 675 100 / 100 Balance 45 / 45 402.5 / 402.5 262.5 / 262.5 Intake: IV 262.5 / 262.5 262.5 / 262.5 Vancomycin Inj 1,250 MG In NS 262.5 / 262.5 262.5 / 262.5 Inj 250 ML @ 250 mls/hr IV.SIG Q12H RYAN Rx#:[id number] Oral 720 / 720 240 / 240 Output: Urine 675 / 675 100 / 100 Other: # Incontinent Voids 2 # Urine Diapers 2 Date of Last Bowel Movement 10/21/18 10/23/18 10/23/18 # Incontinent Bowel Movements 1 Weight 82.3 kg - Imaging and Cardiology Imaging: Impressions Chest X-Ray 10/21/18 11:06 CONCLUSION: 1. Mild diffuse opacity throughout the right lung which may represent a pleural effusion. 2. Mild cardiomegaly 3. No evidence of pulmonary edema or consolidating airspace disease. Chest X-Ray 10/22/18 00:00 CONCLUSION: 1. Interval placement of additional pacer lead with no pneumothorax. 2. Decreased opacity in the lungs with mild residual at the right lung base. Assessment and Plan - Assessment (1) Pacemaker malfunction Code(s): T82.111A - Breakdown (mechanical) of cardiac pulse generator (battery) , initial encounter Status: Acute Plan: Stable s/p difficult placement of new ventricular pacer lead. Pacer function normal on re-interrogation this morning. Post op chest x-ray OK. OK to discharge today. Would like patient to take Levaquin 500 mg qd for a week. One week f/u for incision site check. (2) Paroxysmal atrial fibrillation Code(s): I48.0 - Paroxysmal atrial fibrillation Status: Chronic Plan: May be in atrial fibrillation at present (with ventricular pacing). Patient apparently with problems with gross hematuria on warfarin. Follows with Dr. Valenzuela. Continue clopidogrel. (3) Hypertension Code(s): I10 - Essential (primary) hypertension Status: Chronic Plan: Mildly elevated BP's. Recommend outpatient monitoring and medication adjustment. - Plan Code Status: full code Discussed Condition With: patient (1) Pacemaker malfunction Qualifiers: Encounter type: initial encounter Qualified Code(s): T82.111A - Breakdown ( mechanical) of cardiac pulse generator (battery), initial encounter (3) Hypertension Qualifiers: Hypertension type: essential hypertension Qualified Code(s): I10 - Essential (primary) hypertension
[2018-10-23 12:30] VITALS: BP 123/79; TEMP 98.4; O2SAT 96
[2018-10-23 14:12] VITALS: PULSE 76
== END 2018-10-23 15:19 ==
LOC: NEPC 10:52 → NEDA 10:52 → HCIS 15:52
PROVIDERS: ADMIT Hospitalist; ATTEND Hospitalist